=== PATIENT | female | born 1995 | race Two or more races ===

== ENCOUNTER 2022-01-03 09:40 | Day surgery (SDC) | payer OTHER ==
[2022-01-03] MEDS ORDERED: NAPR500T14 PO (16:19)
[2022-01-03] MEDS ORDERED: MORGIDOX100 MG PO (16:19)
== END 2022-01-03 18:00 | disposition home or self-care (01) ==
LOC: CIR.AMB 09:40
PROVIDERS: ATTEND Obstetrics & Gynecology
DX: N84.0 Polyp of corpus uteri (principal); Z20.822 Contact with and (suspected) exposure to COVID-19; E03.9 Hypothyroidism, unspecified